=== PATIENT | female | born 1965 | race Caucasian/White ===

== ENCOUNTER 2016-09-02 06:14 | Outpatient (CLI) | END 2016-09-02 06:15 | disposition home or self-care (01) | LOC: LAB 06:14 | PROVIDERS: ATTEND Nurse Practitioner | DX: E03.9 Hypothyroidism, unspecified (principal) | CPT/HCPCS: 36415; 84443 ==

== ENCOUNTER 2017-04-12 08:15 | Emergency (ER) ==
[2017-04-12] MEDS ORDERED: ZOFRAN TAB PO STA (08:18)
[2017-04-12 08:25] VITALS: BP 136/77; TEMP 99; BMI 47.8
--- NOTE | 2017-04-12 09:03 | ED.PDOC ---
General ED Provider: Dr. KENDRICK ADAMS JR Chief Complaint: Nausea/Vomiting Stated Complaint: onset with nausea 2 days ago--did not vomit then last pm developed both vomiting and diarrhea--had chills and fever--unable to keep fluids down--now has weakness--had 7 episodes fo vomiting--10 episodes diarrhea. [ End ] 99.0 76 20 95% 136/77 8/10 Time Seen by Physician: 09:03 Mode of Arrival: Walk-In Information Source: Patient Exam Limitations: No limitations Primary Care Provider: JASMIN FOREMAN Nursing and Triage Documentation Reviewed and Agree: No Review of Systems - Review Of Systems Constitutional: Reports: Malaise, Weakness Eyes: Reports: No symptoms Ears, Nose, Mouth, Throat: Reports: No symptoms Respiratory: Reports: No symptoms Cardiac: Reports: No symptoms GI: Reports: Abdomen distended, Diarrhea, Nausea, Vomiting : Reports: No symptoms Musculoskeletal: Reports: No symptoms, Muscle pain (?RLS) Skin: Reports: No symptoms Neurological: Reports: No symptoms Endocrine: Reports: No symptoms Hematologic/Lymphatic: Reports: No symptoms All Other Systems: Other Past Medical History - Past Medical History Endocrine: Reports: DM 2, Hypothyroid, Dyslipidemia Cardiovascular: Reports: None Respiratory: Reports: Asthma Hematological: Reports: None Gastrointestinal: Reports: None Genitourinary: Reports: None Neuro/Psych: Reports: None Musculoskeletal: Reports: None Cancer: Reports: None Last Menstrual Period: october 2016 - Surgical History General Surgical History: Reports: Tubal ligation - Family History Family History: Reports: Unknown - Social History Smoking Status: Never smoker Hx Substance Use: No Alcohol Screening: None Physical Exam - Physical Exam Appearance: Well-appearing, Obese Pain Distress: Mild Eyes: CIPRIANO, EOMI, Conjunctiva clear ENT: Ears normal, Nose normal, Oropharynx normal Neck: Supple Respiratory: Airway patent, Breath sounds clear, Breath sounds equal, Respirations nonlabored Cardiovascular: RRR, Pulses normal, No rub, No murmur GI/: Soft, Nontender, No masses, Bowel sounds normal, No Organomegaly Musculoskeletal: Normal strength, ROM intact, No edema, No calf tenderness ( night spasms in legs disc referral for ppossible RLS, disc more frrquent DM follow up) Skin: Warm, Dry, Normal color Neurological: Sensation intact, Motor intact, Reflexes intact, Cranial nerves intact, Alert, Oriented Psychiatric: Affect appropriate, Mood appropriate Interpretation - Radiology Interpretation Radiology Interpretation By: Radiologist Radiology Results: No acute changes (hepatic steatosis) Exam Interpreted: CT Scan (abd/pelvis) Critical Care Note - Critical Care Note Total Time (mins): 5 Course - Course Hematology/Chemistry: 04/12/17 09:10 04/12/17 09:10 Orders, Labs, Meds: Lab Review 04/12/17 04/12/17 04/12/17 09:00 09:10 09:10 WBC 7.65 RBC 4.94 Hgb 13.9 Hct 41.8 MCV 84.6 MCH 28.1 MCHC 33.3 RDW Coeff of Raúl 14.8 Plt Count 228 Immature Gran % (Auto) 0.3 Neut % (Auto) 87.8 Lymph % (Auto) 6.7 L Brantley % (Auto) 4.2 Eos % (Auto) 0.5 Baso % (Auto) 0.5 Immature Gran # (Auto) 0.0 Neut # 6.7 Lymph # 0.5 L Brantley # 0.3 L Eos # 0.0 Baso # 0.0 Sodium 141 Potassium 4.0 Chloride 106 Carbon Dioxide 27 Anion Gap 12.0 BUN 15 Creatinine 0.79 Estimated GFR (MDRD) 76.00 BUN/Creatinine Ratio 18.98 Glucose 156 H Calcium 9.3 Total Bilirubin 0.46 AST 16 ALT 24 Alkaline Phosphatase 62 Total Protein 7.4 Albumin 3.7 Globulin 3.7 Albumin/Globulin Ratio 1.00 Amylase 59 Lipase 33 TSH 12.789 H Urine Color Urine Clarity Urine pH Ur Specific Deville Urine Protein Urine Glucose (UA) Urine Ketones Urine Blood Urine Nitrite Urine Bilirubin Urine Urobilinogen Ur Leukocyte Esterase Urine Microscopic RBC Urine Microscopic WBC Ur Squamous Epith Cells Urine Bacteria Urine Mucus H. pylori IgG Antibody 04/12/17 04/12/17 09:10 09:20 WBC RBC Hgb Hct MCV MCH MCHC RDW Coeff of Raúl Plt Count Immature Gran % (Auto) Neut % (Auto) Lymph % (Auto) Brantley % (Auto) Eos % (Auto) Baso % (Auto) Immature Gran # (Auto) Neut # Lymph # Brantley # Eos # Baso # Sodium Potassium Chloride Carbon Dioxide Anion Gap BUN Creatinine Estimated GFR (MDRD) BUN/Creatinine Ratio Glucose Calcium Total Bilirubin AST ALT Alkaline Phosphatase Total Protein Albumin Globulin Albumin/Globulin Ratio Amylase Lipase TSH Urine Color Yellow Urine Clarity Clear Urine pH 7.0 Ur Specific Deville 1.020 Urine Protein Negative Urine Glucose (UA) Negative Urine Ketones Negative Urine Blood Trace-intact Urine Nitrite Negative Urine Bilirubin Negative Urine Urobilinogen 0.2 Ur Leukocyte Esterase 1+ Urine Microscopic RBC 0-2 Urine Microscopic WBC 0-2 Ur Squamous Epith Cells 5-10 Urine Bacteria 1+ Urine Mucus 1+ H. pylori IgG Antibody Negative Orders Category Date Time Status ED IV/MEDIPORT/POWERPORT .ONCE EMERGENCY 04/12/17 08:50 Active AMYLASE Stat LAB 04/12/17 09:10 Completed CBC W/ AUTO DIFF Stat LAB 04/12/17 09:10 Completed COMPREHENSIVE METABOLIC PANEL Stat LAB 04/12/17 09:10 Completed H. PYLORI SCREEN Stat LAB 04/12/17 09:10 Completed LIPASE Stat LAB 04/12/17 09:10 Completed TSH [THYROID STIMULATING HORMONE] Stat LAB 04/12/17 09:00 Completed URINALYSIS C & S IF INDICATED Stat LAB 04/12/17 09:20 Completed URINE CULTURE Stat LAB 04/12/17 09:20 Received 0.9 % Sodium Chloride [Saline Flush] MEDS 04/12/17 08:50 Discontinued 1 syr IVF PRN PRN Ondansetron HCl [Zofran Tab] MEDS 04/12/17 08:18 Discontinued 4 mg PO ONCE STA Ondansetron HCl/Pf [Zofran 4 mg/2 ml] MEDS 04/12/17 10:22 Discontinued 4 mg IVP ONCE STA Sodium Chloride 0.9% [Sodium Chloride] 1,000 ml MEDS 04/12/17 09:[address] ABDOMEN/PELVIS WO CONTRAST Stat RADS 04/12/17 08:50 Completed Medications Discontinued Medications Generic Name Dose Route Start Last Admin Trade Name Freq PRN Reason Stop Dose Admin Sodium Chloride 1,000 mls @ 1,000 mls/hr 04/12/17 09:36 04/12/17 09:52 Sodium Chloride IV 04/12/17 10:35 1,000 mls/hr BOLUS STA Administration Ondansetron HCl 4 mg 04/12/17 08:18 04/12/17 08:35 Zofran Tab PO 04/12/17 08:19 4 mg ONCE STA Administration Ondansetron HCl 4 mg 04/12/17 10:22 04/12/17 10:30 Zofran 4 Mg/2 Ml IVP 04/12/17 10:23 4 mg ONCE STA Administration Sodium Chloride 1 syr 04/12/17 08:50 04/12/17 09:52 Saline Flush IVF 1 syr PRN PRN Administration To flush IV Vital Signs: Temp Pulse Resp BP Pulse Ox 04/12/17 08:16 99 F 76 20 136/77 95 Departure - Departure Time of Disposition: 09:56 Disposition: HOME SELF-CARE Discharge Problem: Gastroenteritis Diabetes Qualifiers: Diabetes mellitus type: type 2 Diabetes mellitus complication status: without complication Diabetes mellitus penitentiary insulin use: without moth exterminator use Qualified Code(s): E11.9 - Type 2 diabetes mellitus without complications Instructions: Gastroenteritis (ED) Condition: Good Pt referred to PMD for follow-up: Yes Additional Instructions: recommend not prepare food until no nausea or fever for 24 hours zofran or phenergan for nausea peptobismol or kaopectate for lose stools plenty of fluids for three days diet as tolerated(no solids for 12 hours after emesis) return if fever over 101.0 Prescriptions: Ondansetron HCl [Zofran Tab] 4 mg PO QID PRN #12 tablet PRN Reason: Nausea / Vomiting Promethazine HCl [Phenergan Tab] 25 mg PO QID PRN #12 tablet PRN Reason: Nausea / Vomiting Allergies/Adverse Reactions: Allergies acetaminophen [From [facility]] Adverse Reaction (Verified 04/12/17 08:25) albuterol Adverse Reaction (Verified 04/12/17 08:25) pamabrom [From [facility]] Adverse Reaction (Verified 04/12/17 08:25) Home Medications: Ambulatory Orders Aspirin/Caffeine [Areli Back & Body Caplet] 1 each PO DIRECTED PRN 04/12/17 Diphenhydramine HCl [Benadryl] 25 mg PO ONCE PRN 04/12/17 Ibuprofen 400 mg PO DIRECTED PRN 04/12/17 Levothyroxine Sodium 75 mcg PO DAILY 04/12/17 Metformin HCl 500 mg PO BID 04/12/17 Ondansetron HCl [Zofran Tab] 4 mg PO QID PRN #12 tablet 04/12/17 Pravastatin Sodium [Pravachol] 20 mg PO BEDTIME 04/12/17 Promethazine HCl [Phenergan Tab] 25 mg PO QID PRN #12 tablet 04/12/17
[2017-04-12 09:19] LABS: BASOPHILS % (AUTO) 0.5 % (0.0-3.0); EOSINOPHILS % (AUTO) 0.5 % (0.0-7.0); HEMATOCRIT 41.8 % (37.0-47.0); HEMOGLOBIN 13.9 g/dl (12.0-16.0); IMMATURE GRANULOCYTE % (AUTO) 0.3 % (0.0-5.0); LYMPHOCYTES # (AUTO) 0.5 K/uL (0.60-3.4); LYMPHOCYTES % (AUTO) 6.7 (10.0-50.0); MEAN CORPUSCULAR HEMOGLOBIN 28.1 pg (27.0-31.0); MEAN CORPUSCULAR HGB CONC 33.3 (31.8-35.4); MEAN CORPUSCULAR VOLUME 84.6 fl (81.0-99.0); MONOCYTES # (AUTO) 0.3 K/uL (0.4-2.0); MONOCYTES % (AUTO) 4.2 (0-10); NEUTROPHILS # (AUTO) 6.7 K/ul (2.0-6.9); NEUTROPHILS % (AUTO) 87.8; PLATELET COUNT 228 10^3/uL (140-440); RED BLOOD COUNT 4.94 10^6/ul (4.20-5.40); WHITE BLOOD COUNT 7.65 K/ul (4.6-10.2)
[2017-04-12 09:32] LABS: H. PYLORI ANTIBODY NEGATIVE (NEGATIVE); H.PYLORI INTERNAL QC INTERNAL QC VALID
[2017-04-12 09:33] LABS: BILIRUBIN,URINE Negative (NEGATIVE); KETONES,URINE Negative (NEGATIVE); LEUKOCYTE ESTERASE ,URINE 1+ (NEGATIVE); NITRITE,URINE Negative (NEGATIVE); PROTEIN,URINE Negative (NEGATIVE); URINE, BLOOD Trace-intact (NEGATIVE)
[2017-04-12 09:34] LABS: ADD URINE MICROSCOPIC YES
[2017-04-12 09:35] LABS: BACTERIA,URINE 1+ (NOT PRESENT)
[2017-04-12] MEDS ORDERED: SODIUM CHLORIDE 1,000 ML IV STA (09:36)
[2017-04-12 09:42] LABS: ALBUMIN 3.7 g/dL (3.4-5.0); BILIRUBIN,TOTAL 0.46 mg/dL (0.00-1.20); BUN/CREATININE RATIO 18.98; CALCIUM 9.3 mg/dL (8.2-10.2); CREATININE 0.79 mg/dL (0.60-1.30); TOTAL PROTEIN 7.4 g/dL (6.4-8.2)
--- NOTE | 2017-04-12 09:56 | CT ---
EXAM: CT of the abdomen pelvis without contrast History: Abdominal pain. Technique: Multiplanar CT images through the abdomen pelvis were obtained without the administration of IV contrast Findings: Lung bases are free of consolidation. 4 mm nodule left lower lobe and a few 2 mm nodules lingula. No acute osseous abnormalities. No discrete gallstones identified by CT. The liver is fatty. Calcified granulomas within the spleen . No peripancreatic inflammation. Adrenal glands are unremarkable. No renal stones and no hydronep hrosis. The appendix is not dilated or inflamed. No bowel obstruction. No free air. No ascites. No bladder wall thickening. Adnexal structures appear appropriate for patient's age. No perirectal inflammation. Impression: 1. No acute intra-abdominal or pelvic process. 2. Hepatic steatosis
[2017-04-12] MEDS ORDERED: ZOFRAN 4 MG/2 ML IVP STA (10:22)
== END 2017-04-12 10:55 | disposition home or self-care (01) ==
LOC: ED 08:15
DX: K52.9 Noninfective gastroenteritis and colitis, unspecified (principal); E11.9 Type 2 diabetes mellitus without complications; R94.6 Abnormal results of thyroid function studies; E03.9 Hypothyroidism, unspecified; E78.5 Hyperlipidemia, unspecified; Z79.899 Other long term (current) drug therapy
CPT/HCPCS: 36415; 80053; 81001; 82150; 83690; 84443; 85025; 86677; 87086; 96361; 96374; 99283

== ENCOUNTER 2018-10-25 06:52 | Outpatient (CLI) | END 2018-10-25 06:53 | disposition home or self-care (01) | LOC: LAB 06:52 | PROVIDERS: ATTEND Nurse Practitioner | DX: E03.9 Hypothyroidism, unspecified (principal); E11.8 Type 2 diabetes mellitus with unspecified complications; E78.2 Mixed hyperlipidemia; J45.909 Unspecified asthma, uncomplicated | CPT/HCPCS: 36415; 80053; 80061; 82043; 83036; 84443; 85025 ==